=== PATIENT | female | born 1965 | race Two or more races ===

== ENCOUNTER → 2024-08-22 | Outpatient (CLI) | payer OTHER, SELFPAY ==
--- NOTE | 2024-08-22 10:52 | XR_ITS ---
Examination: Cervical spine 3 views Technique one AP lateral coned AP odontoid cervical spine 3 views Date and time: August 22, 2024 1057 hours INDICATIONS: Neck pain beginning 2 weeks ago. FINDINGS: No cervical fracture Moderate to advanced degenerative disc disease C5-C6 with mild posterior osteophyte formation Intact odontoid IMPRESSION: Moderate to advanced degenerative disc disease C5-C6
== END | disposition home or self-care (01) ==
PROVIDERS: PCP Family Medicine; Referring Provider Nurse Practitioner Family; Visit Provider Nurse Practitioner Family
DX: M50.31 Other cervical disc degeneration, high cervical region (principal)
CPT/HCPCS: 72040